=== PATIENT | male | born 1940 | race Caucasian/White ===

== ENCOUNTER 2024-01-01 11:00 | Outpatient (CLI) | payer MEDICARE, OTHER | END 2024-01-01 11:01 | disposition home or self-care (01) | LOC: PET 11:00 | PROVIDERS: ATTEND Internal Medicine Hematology & Oncology | DX: C15.5 Malignant neoplasm of lower third of esophagus (principal); R59.0 Localized enlarged lymph nodes | CPT/HCPCS: 78815; A9552 ==

== ENCOUNTER 2024-03-13 09:09 | Emergency (ER) | payer MEDICARE, OTHER ==
[2024-03-13 10:30] LABS: INR-International Normal Ratio 1.1; Prothrombin Time 14.4 sec (12.0-14.7)
[2024-03-13 10:31] LABS: ALT (SGPT) 5 U/L (8-55); AST (SGOT) 10 U/L (5-34); Albumin 3.7 g/dL (3.4-4.8); Alkaline Phosphatase 44 U/L (40-110); Anion Gap 20 mmol/L (10-20); BUN (Urea Nitrogen) 19 mg/dL (8.4-25.7); Bilirubin, Total 0.9 mg/dL (0.2-1.2); CK (CPK) 23 U/L (30-200); Calc. Creatinine Clearance 0 mL/min (70-130); Calcium 9.3 mg/dL (7.8-10.44); Carbon Dioxide 17 mmol/L (23-31); Chloride 108 mmol/L (98-107); Estimated GFR 86; Globulin 2.9 g/dL (2.4-3.5); Glucose 98 mg/dL (83-110); Lipase 75 U/L (8-78); Magnesium 1.6 mg/dL (1.6-2.6); PTT 27.7 sec (22.9-36.1); Potassium 3.9 mmol/L (3.5-5.1); Protein, Total 6.6 g/dL (5.8-8.1); Sodium 141 mmol/L (136-145)
[2024-03-13 10:32] LABS: Hematocrit 33.8 % (42.0-52.0); Hemoglobin 11.8 g/dL (14.0-18.0); Mean Corpuscular HGB CONC 34.9 g/dL (32.0-36.0); Mean Corpuscular Hemoglobin 29.4 pg (27.0-31.0); Mean Corpuscular Volume 84.1 fL (78.0-98.0); Mean Platelet Volume 9.9 fL (7.4-10.4); Platelet Count 73 10x3/uL (130-400); RBC Distribution Width 13.7 % (11.5-14.5); Red Blood Cell (RBC) Count 4.02 mill/uL (4.70-6.10)
[2024-03-13 10:46] LABS: Troponin I 0.027 ng/mL (< 0.028)
[2024-03-13 11:01] LABS: Band 22 % (5-11); Burr Cells SLIGHT = 2-5 cells HPF (0-1); Large Platelets 4.9 % (0-5); Lymphocytes 2 % (21-51); Monocytes 8 % (0-10); Neutrophil 68 % (42-75); Ovalocytes SLIGHT = 2-5 cells HPF (0-1); Platelet Adequacy Comment Platelets Decreased; Reactive Lymphocytes 1 % (0-10)
== END 2024-03-13 12:35 | disposition home or self-care (01) ==
LOC: ERS 09:09
DX: R13.10 Dysphagia, unspecified (principal)
CPT/HCPCS: 36415; 71045; 80053; 82550; 83690; 83735; 83880; 84484; 85025; 85610; 85730; 93005; 96360

== ENCOUNTER 2024-04-13 09:30 | Outpatient (CLI) | payer MEDICARE, OTHER | END 2024-04-13 09:31 | disposition home or self-care (01) | LOC: PET 09:30 | PROVIDERS: ATTEND Internal Medicine Hematology & Oncology | DX: C15.9 Malignant neoplasm of esophagus, unspecified (principal); R91.1 Solitary pulmonary nodule; R94.8 Abnormal results of function studies of other organs and systems | CPT/HCPCS: 78815; A9552 ==

== ENCOUNTER 2025-04-22 09:30 | Outpatient (CLI) | payer MEDICARE, OTHER | END 2025-04-22 09:31 | disposition home or self-care (01) | LOC: PET 09:30 | PROVIDERS: ATTEND Internal Medicine Hematology & Oncology | DX: C15.5 Malignant neoplasm of lower third of esophagus (principal); R59.0 Localized enlarged lymph nodes | CPT/HCPCS: 78815; A9552 ==